=== PATIENT | female | born 2005 | race Caucasian/White ===

== ENCOUNTER 2025-07-18 08:29 | Emergency (ER) | payer SELFPAY ==
[2025-07-18] MEDS ORDERED: Lidocaine 1% PF 5 ML VIAL ONE (09:04)
[2025-07-18] MEDS ORDERED: cefTRIAXone (ROCEPHIN) 500 MG VIAL ONE (09:04)
[2025-07-18 09:10] LABS: Glucose, Urine (Dipstick) Negative (Negative); Leukocyte Trace (Negative); Protein, Urine (Dipstick) Negative (Neg-Trace); Specific Gravity, Urine Greater/Equal 1.030 (1.005-1.030)
[2025-07-18 09:16] LABS: CAUTI Indications for Culture Pelvic or flank pain
[2025-07-18 09:18] LABS: Bacteria/HPF 1+ HPF (None Seen)
[2025-07-18 09:20] LABS: Urine Culture Reflex No No
[2025-07-18 09:22] LABS: Pregnancy Test - Urine (BHCG) Negative (Negative); Pregu Control Background? CLEAR/WHITE (CLR/WHITE); Pregu Control Bar Appear? YES (CONTROL BAR)
[2025-07-19 05:03] LABS: GC by PCR, Vaginal Swab *Indeterminate (NotDetected)
[2025-07-19 05:04] LABS: Chlamydia by PCR, Vaginal Swab *Indeterminate (NotDetected)
== END 2025-07-18 09:32 | disposition home or self-care (01) ==
LOC: MADERS 08:29
DX: N89.8 Other specified noninflammatory disorders of vagina (principal); F17.210 Nicotine dependence, cigarettes, uncomplicated; Z75.3 Unavailability and inaccessibility of health-care facilities
CPT/HCPCS: 81001; 81025; 87086; 87480; 87491; 87510; 87591; 87660; 96372; 99283; J0696